=== PATIENT | male | born 1960 | race African-American/Black ===

== ENCOUNTER 2016-06-11 08:18 | Emergency (ER) | payer MEDICARE ==
[2016-06-11 08:32] VITALS: TEMP 97.9; BMI 22.8
--- NOTE | 2016-06-11 08:52 | EDPRACDOC ---
- General Information Chief Complaint: Eye Problems Stated Complaint: VISION ISSUE Time Seen by Provider: 06/11/16 08:31 Information Source: Patient Mode Of Arrival: Ambulance Home Medications: Home Medications Buspirone HCl [Buspar] 10 mg PO .BID ON 09/24/14 Clonazepam 1 mg PO 09/24/14 Labetalol HCl [Trandate] 300 mg PO .TID ON 09/24/14 Mirtazapine [Remeron] 15 mg PO 09/24/14 Polyethylene Glycol 3350 17 gm PO DAILY 09/24/14 Sodium Chloride [Deep Sea] 1 spray ED .TID 09/24/14 Trazodone HCl [Desyrel] 150 mg PO Q09/24/14 Diphenhydramine [Benadryl] 25 mg PO 199903/04/15 Latanoprost 1 drop OU 03/04/15 Pantoprazole Sodium [Protonix] 40 mg PO QAM 03/04/15 Sevelamer Carbonate [Renvela] 2,400 mg PO .BID 03/04/15 Sodium Polystyrene Sulfonate 120 ml PO WE 03/04/15 Buspirone HCl [Buspar] 10 mg PO .TID ON 07/21/15 Labetalol HCl [Trandate] 300 mg PO .BID ON 07/21/15 Silver Sulfadiazine [Silvadene] 20 gm TOP DAILY 07/21/15 Sodium Chloride [Deep Sea] 1 spray ED .BID ON 07/21/15 Amlodipine [Norvasc] 5 mg PO DAILY 02/22/16 Lactulose 30 ml PO DAILY PRN 02/22/16 Sevelamer Carbonate [Renvela] 800 mg PO .BID WITH SNACKS PRN 02/22/16 Clonazepam 1 mg PO DAILY PRN 02/25/16 Selenium Sulfide/Menthol [Selsun Blue 1% Shampoo] 118 ml TP .3XWEEKLY 02/25/16 Aspirin [[facility] Children's Aspirin] 81 mg PO 0800 06/11/16 Comp.stocking,Knee,Regular,Med [Jobst Ultrasheer] 1 each QAM 06/11/16 Dove Soap White Bar 1 malick TOP .3XWEEKLY 06/11/16 Epsom Salt 1 each TOP DAILY 06/11/16 Health Shake 1 each PO BID 06/11/16 Neomy Sulf/Bacitrac Zn/Poly [Neosporin Antibiotic Ointment] 14.2 gm TOP DAILY Sevelamer Carbonate [Renvela] 2,400 mg PO .TID SUTUTHSA 06/11/16 Allergies/Adverse Reactions: Allergies Allergy/AdvReac Type Severity Reaction Status Date / Time No Known Allergies Allergy Verified 06/11/16 11:08 - History of Present Illness Onset: 2 days Medications/Treatment [facility] Treatment BLS IV No HPI: PT FROM [facility]. H/O GLAUCOMA, CATARACTS. PAST 2 DAYS ROOM HAS BEEN MESSY AND THAT IS NOT USUAL, SO CONCERN PT'S VISION IS DIFFERENT. PT HAS NO VISION COMPLAINTS (STATES GETTING OLD). LIMITED HISTORY (MR) BROTHER IN ED, STATES PT HAVING BALANCE ISSUES, CONFUSION, WALKED INTO A WALL RECENTLY. ED Past Medical History - Patient Medical History Cardiac History: Reports: Hypertension GI/ History: Reports: Renal Failure (ON HEMODIALYSIS), Gastroesophageal Reflux Psychological History: Reports: Schizophrenia. Denies: Depression - Social Medical History Smoking Status: Former smoker EDM Review of Systems - Review of Systems ROS Negative Except as Marked: Yes All systems reviewed and were negative except as marked - Physical Exam Constitutional: No apparent distress Oriented to: Person Last recorded Vital Signs: Last Vital Signs Temp 97.9 F 06/11/16 08:28 Pulse 72 06/11/16 08:28 Resp 18 06/11/16 08:28 BP 119/73 06/11/16 08:28 Pulse Ox 96 06/11/16 08:28 Oxygen Pulse Oxygen Saturation 96 O2 Device Room Air Oxygen Flow Rate Fraction of Inspired Oxygen ( FIO2) - HEENT Head: Normal Eye Exam: Other (RIGHT EYE PUPIL NONREACTIVE, LEFT PUPIL REACTIVE TO LIGHT. PT SEES THE LIGHT.) Oropharynx: Membranes Dry Nose: No Symptoms Reported Neck: Normal - Respiratory/Cardiovascular Respiratory: Normal - CTA Cardiovascular: Normal - GI Tenderness: Non tender - Musculoskeletal Back: Normal Extremities: Normal - Integumentary Skin: Normal, Warm, Dry Lymphatics: Normal - Neurologic Motor Function: Normal Cranial Nerve: Normal Mood Description: Normal - Results 06/11/16 09:27 06/11/16 09:27 - Additional Information RENAL FUNCTION STABLE. MULTIPLE NEGATIVE URINE CULTURES. WILL WAIT ON CX FOR ABX BROTHER ACTUALLY REPORTS VISION CHANGES FOR 2 WEEKS. EYE APPTMNT END OF MAY. Decision Time to Discharge: 11:51 - Departure Yes I personally saw and evaluated the patient. Disposition: Assisted Facility Condition: Stable Final Diagnosis: Confusion Instructions: Altered Mental Status (ED), Confusion Education/Counseling Given To: Family Member Education/Counseling Given Regarding: Diagnosis Referrals: Favian Diaz MD [Primary Care Provider] - One Week
[2016-06-11] MEDS ORDERED: NS 1,000 ML IV ONE (08:56)
[2016-06-11 09:38] LABS: AUTOMATED BASOPHIL 0.5 % (0-2); AUTOMATED EOSINOPHIL 2.3 % (0-5); AUTOMATED LYMPH 10.6 % (17-44); AUTOMATED MONOCYTE 7.8 % (3-10); AUTOMATED NEUTROPHIL 78.8 % (45-76); MPV 7.7 fL (7.4-10.4)
[2016-06-11 09:42] LABS: RBC/URINE 30-40 (0-2); WBC/URINE 40-50 (0-2)
[2016-06-11 09:44] LABS: LEUKOCYTES/URINE 1+ (NEGATIVE); NITRITE/URINE NEG (NEGATIVE); URINE OCCULT BLOOD 1+ (NEG/TRACE)
[2016-06-11 09:50] LABS: CALC CORRECTED 8.7 MG/DL (8.4-10.2); CALCIUM 8.6 MG/DL (8.4-10.2); TOTAL PROTEIN 7.8 G/DL (6.3-8.2)
--- NOTE | 2016-06-11 10:30 | DIRPT ---
CLINICAL DATA: Mental status changes, confusion and visual changes. EXAM: CT HEAD WITHOUT CONTRAST TECHNIQUE: Contiguous axial images were obtained from the base of the skull through the vertex without intravenous contrast. COMPARISON: 02/22/2016 FINDINGS: The brain demonstrates no evidence of hemorrhage, infarction, edema, mass effect, extra-axial fluid collection, hydrocephalus or mass lesion. The skull is unremarkable. IMPRESSION: Normal head CT. Electronically Signed By: Antoine Mar M.D. On: 06/11/2016 10:28
[2016-06-11 11:42] VITALS: BP 130/82; PULSE 72
== END 2016-06-11 12:20 | disposition home or self-care (01) ==
LOC: ED 08:18
DX: R41.0 Disorientation, unspecified (principal)
CPT/HCPCS: 36415; 70450; 80053; 81001; 85025; 87086; 96360; 96361; 99283